=== PATIENT | male | born 1960 | race Caucasian/White ===

== ENCOUNTER 2017-01-08 19:06 | Inpatient (IN) | payer MEDICARE ==
--- NOTE | ~2017-01-08 | EKG ---
PATIENT: GARY IRENE UNIT #: [id number] Ventricular Rate: 86 BPM Atrial Rate: 86 BPM P-R Interval: 122 ms QRS Duration: 130 ms Q-T Interval: 398 ms QTC Calculation(Bezet): 476 ms P [place]: 65 degrees Calculated R [place]: 73 degrees Calculated T Dublin: 34 degrees Diagnosis Line: Normal sinus rhythm Diagnosis Line: Right bundle branch block Diagnosis Line: Abnormal ECG Diagnosis Line: When compared with ECG of 09-JAN-2017 07:33, Diagnosis Line: (unconfirmed) Diagnosis Line: Left posterior fascicular block is no longer Diagnosis Line: Present Diagnosis Line: Confirmed by RACHEL ZAMUDIO MD ([id number]) on Diagnosis Line: 01/09/2017 5:22:20 PM INTERPRETING MD: KYM
--- NOTE | ~2017-01-08 | CT4 ---
[facility] A Service of [facility] RADIOLOGY TEXT RESULTS PATIENT: GARY IRENE LOCATION: CICCU2 CICCU12-23 : 58 UNIT #: [id number] AGE: [address]: Bere Sung MD SEX: M ORDER DR: [id number] [facility] [address] [facility]. [place], [place] [address] [id number] I MR#: [id number] Acc #: [id number] NAME: GARY IRENE : 1960 SEX: M STUDY DATE/TIME: 01/08/2017 21:57 UNIT: CEDOF ROOM: [id number] STUDY DESCRIPTION: CT Abd and Pelv Wo Cont Attending Physician: Bere Sung M.D. Ordering Physician: Abimbola Patel M.D. Primary Care Physician: No Primary Care Physician MEDICAL IMAGING REPORT This report is preliminary unless electronic signature is present EXAM CT abdomen and pelvis without contrast. HISTORY Abdomen pain and lethargy. Drug overdose today. Found down. TECHNIQUE CT abdomen and pelvis was performed without contrast. This CT exam was performed with one or more of the following radiation dose reduction techniques: automatic exposure control, adjustment of mA and/or kV according to patient size, and iterative reconstruction. FINDINGS CT ABDOMEN: Incidental small hepatic cysts in the anterior hepatic dome and adjacent to the gallbladder. No biliary ductal dilatation or gallbladder distension. No renal calculi or hydronephrosis. Incidental small cyst upper pole of the right kidney. The spleen, pancreas, and adrenal glands are normal. No ascites. No inflammatory stranding. CT PELVIS: No free fluid. No bowel dilatation. No inflammatory stranding. The urinary bladder is normal. IMPRESSION 1. No acute findings in the abdomen or pelvis. 2. Incidental small hepatic cysts and right renal cyst. 3. No bowel obstruction or urinary obstruction. No free fluid. Dictated by... Dkaotah Henson M.D. [facility] A Service of [facility] RADIOLOGY TEXT RESULTS PATIENT: GARY IRENE LOCATION: CICCU2 CICCU12-23 : 58 UNIT #: [id number] AGE: [address]: Bere Sung MD SEX: M ORDER DR: THIS IS AN ELECTRONICALLY VERIFIED REPORT Dakotah Henson M.D. at 01/09/2017 11:37 PM CARLA/sandro TD: 01/09/2017 08:22 JOB #: [id number] MEDICAL IMAGING REPORT COPY
--- NOTE | ~2017-01-08 | CR72 ---
[facility] A Service of [facility] RADIOLOGY TEXT RESULTS PATIENT: GARY IRENE [facility]ATION: [facility] UNIT #: [id number] AGE: [address]: Bere Sung MD SEX: M ORDER DR: [id number] [facility] [address] [facility]. [place], [place] [address] [id number] I MR#: [id number] Acc #: [id number] NAME: GARY IRENE : 1960 SEX: M STUDY DATE/TIME: 01/08/2017 19:36 UNIT: CEDOF ROOM: [id number] STUDY DESCRIPTION: CR Chest Single View Portable Attending Physician: Bere Sung M.D. Ordering Physician: Abimbola Patel M.D. Primary Care Physician: Primary Care Physician No MEDICAL IMAGING REPORT This report is preliminary unless electronic signature is present EXAM Portable chest HISTORY Shortness of air today. Hypotension. Congestion. FINDINGS The cardiac size and pulmonary vascularity are normal. No infiltrates or effusions. Mild linear atelectasis in the lateral left base has developed since 01/03/2017. Interval removal of the right arm approach PICC. Minimally-displaced fractures of the posterior right sixth and seventh ribs. IMPRESSION No acute findings. No active disease. Dictated by... Dakotah Henson M.D. THIS IS AN ELECTRONICALLY VERIFIED REPORT Dakotah Henson M.D. at 01/09/2017 11:35 PM FANNYL/medardo TD: 01/09/2017 07:10 JOB #: [id number] MEDICAL IMAGING REPORT COPY
--- NOTE | ~2017-01-08 | EKG ---
PATIENT: GARY IRENE UNIT #: [id number] Ventricular Rate: 90 BPM Atrial Rate: 90 BPM P-R Interval: 114 ms QRS Duration: 136 ms Q-T Interval: 438 ms QTC Calculation(Bezet): 535 ms P [place]: 59 degrees Calculated R [place]: 117 degrees Calculated T [place]: 36 degrees Diagnosis Line: Normal sinus rhythm Diagnosis Line: Right bundle branch block Diagnosis Line: Abnormal ECG Diagnosis Line: No previous ECGs available Diagnosis Line: Confirmed by RACHEL ZAMUDIO MD ([id number]) on Diagnosis Line: 01/10/2017 10:55:12 PM INTERPRETING MD: KYM
--- NOTE | ~2017-01-08 | CR63 ---
[facility] A Service of [facility] & [facility] RADIOLOGY TEXT RESULTS PATIENT: GARY IRENE [facility]: [facility] 575-01 : 58 UNIT #: [id number] AGE: [address]: Raj Ibarra MD SEX: M ORDER DR: [id number] [facility] [address] [facility]. [place], [place] [address] [id number] I MR#: [id number] Acc #: [id number] NAME: GARY IRENE : 1960 SEX: M STUDY DATE/TIME: 01/12/2017 14:41 UNIT: [facility] ROOM: [facility] STUDY DESCRIPTION: CR Chest 2 View Attending Physician: Raj Ibarra M.D. Ordering Physician: Bear Rocha M.D. Primary Care Physician: No Primary Care Physician MEDICAL IMAGING REPORT This report is preliminary unless electronic signature is present EXAM PA and lateral chest 01/12/2017 HISTORY Chronic shortness of air. Performed to correlate with VQ scan. COMPARISON STUDIES 01/08/2017 PA and lateral views of the chest were obtained. FINDINGS The heart size and vascularity are normal. The lungs are hyperinflated. The bones are unremarkable. IMPRESSION Hyperinflated lungs. No active disease. Dictated by... Josh Stern M.D. THIS IS AN ELECTRONICALLY VERIFIED REPORT Josh Stern M.D. at 01/13/2017 7:26 AM Jose TD: 01/12/2017 17:38 JOB #: [id number] MEDICAL IMAGING REPORT COPY
--- NOTE | ~2017-01-08 | CO ---
Unit #: [id number] #: [id number] Patient: GARY SULTANA [id number] [address] [address] [id number] I MR#: [id number] NAME: GARY SULTANA ROOM: CIC2 Age: 56 Sex: M Admission Date: 01/08/2017 : 1960 Attending Physician: Raj Ibarra M.D. Consultation Date: 01/09/2017 CONSULTATION REPORT REASON FOR CONSULTATION A 56-year-old heroin addict, found down, and noted to have elevated serum troponin. HISTORY OF PRESENT ILLNESS Mr. Gary Sultana is a 56-year-old white male, who has no prior history of coronary or significant cardiac disease. He has taken prior to admission amlodipine for hypertension. The patient is currently in the ICU, alert, in no acute distress while watching television. He states he has absolutely no recall of the events leading up to this current admission. He does admit to snorting heroin in the hours prior to this apparent presentation. Review of records indicates that the patient was recently admitted to [facility] on 01/01/2017 through the 01/04/2017 with complaints of shortness of breath. He has a history of both heroin and cocaine abuse. He was treated for hypoxemic/hypercapnic respiratory failure, was on the ventilator, and treated for pneumonia at that time. Apparently, cocaine use has been ineffective. He was subsequently sent home on Augmentin and I continued on amlodipine for hypertension. Apparently, the patient's brother found him down in his yard and he was lethargic and confused. He took him by car to the emergency department and he reportedly passed out en route. He was felt to have likely had a drug overdose. In the ER, he was noted to have a number of abnormal labs with elevated liver function tests, lipase and amylase, any urine toxicity was positive for opioids (the patient now freely admits he was snorting heroin). He also had a new acute renal failure. He was incidentally noted to have an elevated troponin of 0.5, which subsequently increased to 1.0 and we will consult with respect to the elevated troponin. Currently, I asked the patient if he has ever had any documented heart problem and he denies this. In retrospect, he denies having had any recent chest, neck, arm, jaw, or interscapular discomfort suggestive of angina pectoris. He has had pain in his chest only when he coughs. He states that his cough produces some dark-colored sputum. No history of hemoptysis. Somehow a communication with nursing staff, there was no mention that his total CK was greater than 5000 and he was subsequently started by me on Unit #: [id number] #: [id number] Patient: GARY SULTANA medication appropriate for acute coronary syndrome including a heparin drip, and loading with Brilinta and starting aspirin. PAST MEDICAL HISTORY Other medical problems: 1. Chronic obstructive pulmonary disease. 2. Hypertensive cardiovascular disease. 3. Chronic anemia. 4. Multisubstance abuse. PAST SURGICAL HISTORY Status post appendectomy, status post surgery for salivary gland stones. SOCIAL HISTORY The patient's apparently 2 years ago and he is a . He currently lives with his mother. He admits to smoking about 1 to 1-1/2 pack of cigarettes per day. He uses cocaine and also safely sniffs heroin. He denies any recent alcohol or other substance abuse. FAMILY HISTORY Negative for premature coronary artery disease. Positive for lung cancer. PRESCRIBED MEDICINES Prior to current admission include the following: Amlodipine 10 mg p.o. once per day, albuterol inhaler 2 puffs q.4 hours p.r.n., Augmentin 875 mg b.i.d., Symbicort 160/4.5 mcg 1 puff b.i.d., and nicotine patches 21 mg at bedtime. REVIEW OF SYSTEMS The patient denies any TIA or stroke symptoms. He has not had any history of seizure. He denies any head trauma. He has not had any history of pulmonary embolus or deep venous thrombosis. He denies any history of hepatitis or yellow jaundice. He denies any fever or chills. He denies any dysuria. He has not had any orthopnea, PND, significant lower extremity edema suggestive of congestive heart failure. He states no one has ever told him he had a cardiomyopathy or weakened heart pump. He is unaware of any rapid palpitations, atrial fibrillation, dizziness. He does hear himself wheezing at times. A 12-point review of systems is otherwise negative. PHYSICAL EXAMINATION GENERAL: The patient is a thin, 56-year-old, white male, who is sitting up in bed, watching television, in no acute distress. VITAL SIGNS: Blood pressure 158/72. Monitor showed normal sinus rhythm at 80 per minutes, respiratory rate is 20 per minute and unlabored. He is able to speak in complete sentences without use of accessory muscles of respiration, oxygen saturations 97%. HEENT: Skin is warm and dry. He is nonicteric. Pupils are equal, round, reactive to light. Oral mucosa is moist. NECK: Supple without palpable thyroid or lymphadenopathy. No head trauma. LUNGS: There is scattered rhonchi bilaterally without active wheezes or rales. CARDIOVASCULAR: A soft S4 is noted at the apex. S1 is normal. The pulmonic component of the second heart sound is not increased. There is no right ventricular lift heave. There is a 2/6 systolic murmur at the left lower sternal border without pathologic radiation. There is no diastolic murmur or S3. There is no pericardial friction rub. Carotid Unit #: [id number] #: [id number] Patient: GARY SULTANA upstrokes are brisk bilaterally without bruits. ABDOMEN: Nondistended with normal bowel sounds. There is no pulsatile mass. There is no hepatosplenomegaly. EXTREMITIES: Show no edema or cyanosis. There is tenderness to palpation of the calf muscles and extending up into the lateral aspect of the right thigh. There is less tenderness over the left lower extremity. NEUROLOGIC: He is alert and oriented x3. He states that his right foot is very numb over the dorsum on palpation, but less so of the plantar aspect of the right foot. There is much less numbness over the left foot. There is a numbness over the lateral aspect of the right thigh. DIAGNOSTIC STUDIES CARDIOVASCULAR STUDIES: EKG on 01/08/2017: Atrial fibrillation with ventricular response 127 to 130 per minute. Right bundle-branch block (old). Nonspecific ST changes. No acute injury pattern or ischemia. Compared to EKG dated 09/2017 at 6:02 a.m., atrial fibrillation is new. 01/09/2017 at 4:43 a.m., normal sinus rhythm. Incomplete right bundle-branch block. Nonspecific ST changes. No acute injury pattern or ischemia. EKG 01/09/2017 at 11:17 a.m., normal sinus rhythm. First-degree AV block. No ischemia or injury pattern. LABORATORY RESULTS: Total CK on admission has increased from 4618 to 5258, and finally 5446. Troponin increased from 0.51 to 1.02. MB percentage is 1.7%. ASSESSMENT 1. Acute rhabdomyolysis. Clinical findings with markedly elevated total CK relative to very small elevation of troponin consistent more with just rhabdomyolysis. There was no clinical history, physical, or other finding to be consistent with this as an acute coronary syndrome. The troponin is insignificantly elevated relative to the market elevation of total CK from skeletal muscle injury. 2. Transient atrial fibrillation with rapid ventricular response. The patient has subsequently spontaneously converted back to normal sinus rhythm. 3. Accelerated hypertension. Blood pressures have been better controlled with IV nitroglycerin drip. 4. Acute renal failure. 5. Acute hepatocellular injury with elevated liver function tests. 6. Multisubstance abuse, most currently with heroin resulting in overdose and obtundation/metabolic encephalopathy on this current admission. RECOMMENDATIONS The patient does not have acute coronary syndrome. Very small elevation of the troponin relative to the marked total CK elevation all consistent with acute rhabdomyolysis. The patient was found down, he complains of soreness, muscle aches in the right leg greater than the left and I suspect that this may have been the position as he was in when he developed a rhabdo. Agree with current treatment as ongoing for that issue. We will however discontinue the Brilinta that was administered before that and try to wean off the IV nitroglycerin drip utilized as much for hypertension control as it was for potential coronary ischemia. We will add treatment with metoprolol tartrate starting in smaller, but more frequent doses, so as to not overshoot and caused hypotension that could worsen renal failure. We will also reinstitute amlodipine in divided Unit #: [id number] #: [id number] Patient: GARY SULTANA doses as well. We will continue IV heparin drip for now until can better assess any recurrence of the patient's atrial fibrillation. Current CHADS2 vascular score equals 1 in which an aspirin a day would be adequate therapy. However until his acute illness has been better treated, we will still cover with anticoagulation with heparin for now. An echocardiogram will be done in the morning to assess any structural heart disease/cardiomyopathy. The previously cardiac catheterization is not needed and likely will not be needed this entire admission. We will proceed with treatment of his other multiple comorbidities with his most important underlying problems being his heroin and other substance abuse. We may see if the patient would be interested in entering [facility] or other drug rehabilitation program. Dictated by... Michael Sahu M.D. CP/radhika TD: 01/10/2017 05:17 JOB #: [id number] CONSULTATION REPORT X Michael Sahu MD X CONSULTATION REPORT
--- NOTE | ~2017-01-08 | EKG ---
PATIENT: GARY IRENE UNIT #: [id number] Ventricular Rate: 93 BPM Atrial Rate: 93 BPM P-R Interval: 120 ms QRS Duration: 130 ms Q-T Interval: 388 ms QTC Calculation(Bezet): 482 ms P Bennett: 74 degrees Calculated R Bennett: 118 degrees Calculated T Bennett: 15 degrees Diagnosis Line: Normal sinus rhythm Diagnosis Line: Right bundle branch block Diagnosis Line: Left posterior fascicular block Diagnosis Line: Bifascicular block Diagnosis Line: Abnormal ECG Diagnosis Line: When compared with ECG of 09-JAN-2017 04:43, Diagnosis Line: (unconfirmed) Diagnosis Line: No significant change was found Diagnosis Line: Confirmed by RACHEL ZAMUDIO MD ([id number]) on Diagnosis Line: 01/09/2017 5:19:08 PM INTERPRETING MD: KYM
--- NOTE | ~2017-01-08 | CO ---
Unit #: [id number] #: [id number] Patient: GARY IRENE [id number] [address] [address] [id number] I MR#: [id number] NAME: [facility]ARY IR[facility] Age[facility] 56 Sex: M Admission Date: 01/08/2017 : 1960 Attending Physician: Bere Sung M.D. Primary Care Physician: No Primary Care Physician CONSULTATION REPORT REASON FOR CONSULTATION Critical care management and sepsis. HISTORY OF PRESENT ILLNESS This patient basically is known to me from previous admission a few days ago. He was admitted with acute respiratory failure. We was on ventilator with COPD exacerbation. He does have a history of drug abuse. He presented with complaint of drug overdose. He was found unresponsive by the family members and was found to be hypotensive and admitted in Intensive Care Unit. I am seeing the patient at bedside. Currently, he has been complaining of bilateral lower extremity pain. He is awake and alert. REVIEW OF SYSTEMS Positive for pallor. No edema, no cyanosis, no jaundice. The rest as per History of Present Illness. The rest of the twelve point review of systems has been reviewed and is negative other than history of present illness. PAST MEDICAL HISTORY 1. COPD exacerbation. 2. Hypertension. 3. Restless leg syndrome. 4. Polysubstance abuse. SURGICAL HISTORY 1. Appendectomy. 2. (1) . SOCIAL HISTORY He smokes one pack per day. Positive drug abuse. FAMILY HISTORY Positive for lung cancer. ALLERGIES No known drug allergies. HOME MEDICATIONS Albuterol. PHYSICAL EXAMINATION VITAL SIGNS: Temperature is currently 98, pulse is 99, respirations 23, Unit #: [id number] #: [id number] Patient: GARY IRENE blood pressure is 161/81. NEUROLOGICAL: Awake, alert, oriented. No neuro deficit. HEENT: PERRLA. NECK: Supple. No JVD. CHEST: Bilateral air entry, bilateral mild rhonchi. GI: Nontender, soft. Bowel sounds positive. EXTREMITIES: No edema. SKIN: No rashes, no ulcers. LYMPHATIC: No lymphadenopathy. DIAGNOSTIC STUDIES LABORATORY: Creatinine is 2.2, BUN 47. His potassium was 5.8. His chloride 109, bicarb is 16. His AST is 1989, ALT 1586. Troponin 0.58. Lactic acid is 5.3. Troponin 0.13. White count is 37, hematocrit 32, platelet count for the patient 310 and his lipase was 41. ASSESSMENT AND PLAN 1. Drug overdose. 2. Sepsis. 3. Hypertension. 4. Leukocytosis. 5. Acute renal failure. 6. Abnormal liver function tests. 7. Heroin overdose. 8. Hypoglycemia. 9. Chronic obstructive pulmonary disease. 10. Recent history of respiratory failure. 11. Critically ill patient. Plan is to admit the patient and continue vancomycin and Zosyn. Continue IV fluids, GI and DVT prophylaxis. Continue to monitor in Intensive Care Unit. Cardiology consultation, 2D echo. The patient will be closely monitored. Please see orders for detailed plan. Thank you very much for this consultation. We will continue to monitor patient very closely. Critical care time is 45 minutes in direct critical care of this patient. Dictated by... Saturnino Mckinney/felipe TD: 01/09/2017 15:10 JOB #: [id number] Unit #: [id number] #: [id number] Patient: GARY IRENE CONSULTATION REPORT X Shant Hay MD CONSULTATION REPORT
--- NOTE | ~2017-01-08 | NM69 ---
[facility] A Service of [facility] RADIOLOGY TEXT RESULTS PATIENT: GARY IRENE LOCATION: [facility] : 58 UNIT #: [id number] AGE: [address]: Raj Ibarra MD SEX: M ORDER DR: [id number] [facility] [address] [facility]. [place], [place] [address] [id number] I MR#: [id number] Acc #: [id number] NAME: GARY IRENE : 1960 SEX: M STUDY DATE/TIME: 01/12/2017 16:04 UNIT: [facility] ROOM: [facility] STUDY DESCRIPTION: NM Pulm Vent and Perf Attending Physician: Raj Ibarra M.D. Ordering Physician: Bear Rocha M.D. Primary Care Physician: No Primary Care Physician MEDICAL IMAGING REPORT This report is preliminary unless electronic signature is present EXAM Ventilation and perfusion study of the lungs. DATE OF EXAM 01/12/2017 INDICATION Pulmonary hypertension. Shortness of air and swelling in both legs with long-term smoking history and emphysema. Shortness of air for a long time. TECHNIQUE The ventilation study is done with 34 mCi technetium-99m DTPA in aerosol form and the perfusion study is done with 5.7 mCi technetium-99m MAA. COMPARISON There is a chest x-ray from today for comparison. FINDINGS The ventilation and perfusion images are very heterogeneous. There are no mismatched perfusion/ventilation defects and the ventilation abnormalities are much worse than the perfusion abnormalities. IMPRESSION The findings suggest diffuse emphysematous change with spotty distribution of the radiopharmaceutical on the ventilation and perfusion studies. There are no mismatched perfusion/ventilation abnormalities, and I believe this indicates a low probability for pulmonary embolus. Dictated by... Josh Stern M.D. [facility] A Service [facility] RADIOLOGY TEXT RESULTS PATIENT: GARY IRENE LOCATION: [facility] : 58 UNIT #: [id number] AGE: [address]: Raj Ibarra MD SEX: M ORDER DR: THIS IS AN ELECTRONICALLY VERIFIED REPORT Josh Stern M.D. at 01/13/2017 7:26 AM ROM/janneth TD: 01/12/2017 17:20 JOB #: [id number] MEDICAL IMAGING REPORT COPY
--- NOTE | ~2017-01-08 | EKG ---
PATIENT: GARY IRENE UNIT #: [id number] Ventricular Rate: 127 BPM Atrial Rate: 150 BPM QRS Duration: 174 ms Q-T Interval: 396 ms QTC Calculation(Bezet): 575 ms Calculated R [place]: 63 degrees Calculated T [place]: 12 degrees Diagnosis Line: Atrial fibrillation with rapid ventricular Diagnosis Line: response Diagnosis Line: Right bundle branch block Diagnosis Line: Abnormal ECG Diagnosis Line: When compared with ECG of 01-JAN-2017 06:02, Diagnosis Line: Atrial fibrillation has replaced Sinus rhythm Diagnosis Line: Questionable change in QRS duration Diagnosis Line: Confirmed by RACHEL ZAMUDIO MD ([id number]) on Diagnosis Line: 01/09/2017 5:14:29 PM INTERPRETING MD: KYM
--- NOTE | ~2017-01-08 | EKG ---
PATIENT: GARY IRENE UNIT #: [id number] Ventricular Rate: 81 BPM Atrial Rate: 81 BPM P-R Interval: 110 ms QRS Duration: 132 ms Q-T Interval: 434 ms QTC Calculation(Bezet): 504 ms P [place]: 64 degrees Calculated R [place]: 136 degrees Calculated T [place]: 42 degrees Diagnosis Line: Sinus rhythm with short ME Diagnosis Line: Right bundle branch block Diagnosis Line: Abnormal ECG Diagnosis Line: When compared with ECG of 10-JAN-2017 06:17, Diagnosis Line: No significant change was found Diagnosis Line: Confirmed by JUDE GALE MD ([id number]) on 01/11/2017 Diagnosis Line: 7:17:50 AM INTERPRETING MD: BALJINDER FONSECA
--- NOTE | ~2017-01-08 | HP ---
Unit #: [id number] #: [id number] Patient: GARY IRENE [id number] [facility] [address]. [place], [place] [address] [id number] I MR#: [id number] NAME: GARY IRENE [facility] Age: 56 Sex: M Admission Date: 01/08/2017 : 1960 Attending Physician: Bere Sung M.D. Primary Care Physician: No Primary Care Physician HISTORY AND PHYSICAL CHIEF COMPLAINT Possible drug overdose, patient passed out. DISCUSSION This is a 56-year-old gentleman who has a past medical history of COPD, hypertension, chronic anemia, history of cocaine abuse, history of heroin use. He had a recent admission here at [facility] from January 01 through January 04. He was admitted with shortness of breath and patient was intubated on vent secondary to heroin use. He was in hypoxic/hypercapnic respiratory failure on the vent and also patient has been treated for pneumonia, cocaine use and eventually patient was stabilized and sent home on Augmentin and Norvasc and nicotine patch. As per mother who is available at bedside, the brother found him in his yard, confused and he took him to car. He said in the car he passed out and he was brought to the emergency room for possible overdose. In the ER, he had abnormal labs. AST 378, ALT 476, alkaline phosphatase 152, lipase 85, amylase 289, lactic acid at 0.1. Urine toxicology was positive for opiate. BUN 35, creatinine 2.3 and glucose also was 22. The patient got D50. At this time, he just returned from CT scan. He is alert, awake, responding to questions but seems confused, complaining of numbness in the legs and also telling me that he has snorted heroin today also but denies chest pain, nausea, vomiting, or other complaints. He seems pretty confused. PAST MEDICAL HISTORY 1. History of COPD. 2. Hypertension. 3. Chronic anemia. 4. Appendectomy. 5. Salivary gland stone surgery. 6. Recently, patient admitted with hypoxic/hypercapnic respiratory failure with heroin overdose. 7. Cocaine abuse. 8. Recent history of toxic metabolic encephalopathy secondary to hypercapnia. SOCIAL HISTORY Patient lives with mother. The two years ago. He smokes one and a half packs of cigarettes daily. He used cocaine and also sniffs cocaine. Denies alcohol. FAMILY HISTORY Positive for lung cancer. Unit #: [id number] #: [id number] Patient: GARY IRENE ALLERGIES No known drug allergies. MEDICATIONS Medications from home - mother said he is using only albuterol and Advair. Did not fill the medications from discharge from the hospital. REVIEW OF SYSTEMS Unable to obtain from the patient clearly because he is confused, disoriented. PHYSICAL EXAMINATION GENERAL: Middle aged man lying in the bed comfortably, currently not in any distress. CURRENT VITAL SIGNS: Temp is 97.9, heart rate 132, respiratory rate is 18, blood pressure 80/42. Oxygen 90% on 2 L. HEENT: Pupils equal, reactive to light and accommodation. Head is normocephalic, atraumatic. NECK: Supple. No JVD. HEART: S1, S2. Regular rate and rhythm. Tachycardia. LUNGS: Poor air entry but no rhonchi, no wheezing. ABDOMEN: Soft, nontender, nondistended. Bowel sounds positive. EXTREMITIES: Inspection normal. No cyanosis, no clubbing, no edema. NEURO: No focal neurologic deficit. DIAGNOSTIC STUDIES LABORATORY: Lipase 85, amylase 289, lactic acid 8.1. Urine toxicology positive for opiates. Sodium 144, potassium 4.7, chloride 104, glucose 32, BUN 34, creatinine 2.3, AST 378, ALT 457, alkaline phos. 157. Tylenol less than 10. CBC - white count 47,000, hemoglobin 9, hematocrit 34, platelet is 443. IMAGING: Chest x-ray shows no infiltrate. CT head is negative. CT abdomen is pending at time of dictation. ASSESSMENT AND PLAN 1. Sepsis with hypotension: Empirically start patient on Zosyn and vancomycin, IV fluids. Admit to ICU. 2. Leukocytosis. 3. Acute renal failure: BUN 34, creatinine 2.3 which was 16 and 0.6 on the discharge. Will start patient on IV fluids and monitor. 4. Questionable acute pancreatitis: We are awaiting CT scan. 5. Abnormal liver function tests: Could be secondary to hypotension. Will monitor repeat CMP in the morning. 6. Heroin overdose. 7. Hypoglycemia: He was given D50, one ampule in the ER. Repeat Accu-Chek. 8. History of recent hypoxic/hypercapnic respiratory failure secondary to overdose. Unit #: [id number] #: [id number] Patient: GARY IRENE 9. Chronic obstructive pulmonary disease. 10. Hypertension with hypotension. 11. GI and DVT prophylaxis: Place patient on Lovenox and Protonix. Dictated by Saturnino Agee TD: 01/09/2017 12:06 JOB #: [id number] HISTORY AND PHYSICAL X X HISTORY AND PHYSICAL
--- NOTE | ~2017-01-08 | CT71 ---
[facility] A Service of [facility] RADIOLOGY TEXT RESULTS PATIENT: GARY IRENE LOCATION: CICCU2 CICCU12-23 : 58 UNIT #: [id number] AGE: [address]: Bere Sung MD SEX: M ORDER DR: [id number] [facility] [address] [place], [place] [address] [id number] MR#: [id number] Acc #: [id number] NAME: GARY IRENE : 1960 SEX: M STUDY DATE/TIME: 01/08/2017 21:54 UNIT: CEDOF ROOM: 67423 STUDY DESCRIPTION: CT Head Wo Contrast Attending Physician: Bere Sung M.D. Ordering Physician: Abimbola Patel M.D. Primary Care Physician: Primary Care Physician No MEDICAL IMAGING REPORT This report is preliminary unless electronic signature is present EXAM Head CT 01/08/2017 2154 hours INDICATION Patient found passed out in patient's driveway today. Lethargy. Possible overdose today. TECHNIQUE This CT examination was performed with one or more of the following radiation dose reduction techniques: automatic exposure control, adjustment of mA and/or kV according to patient size, and iterative reconstruction. FINDINGS Axial images were obtained from the base to the vertex without contrast. Comparison is made with 01/01/2017. Ventricular size and configuration remain normal. No acute infarct or hemorrhage is seen. There are no masses. No skull fracture. IMPRESSION Negative noncontrast head CT. Dictated by... Coleman Crawford Jr., M.D. THIS IS AN ELECTRONICALLY VERIFIED REPORT Coleman Crawford Jr., M.D. at 01/09/2017 8:35 PM ROSSY/medardo TD: 01/09/2017 08:12 JOB #: [id number] [facility] A Service of [facility] RADIOLOGY TEXT RESULTS PATIENT: GARY IRENE LOCATION: CICCU2 CICCU12-23 : 58 UNIT #: [id number] AGE: [address]: Bere Sung MD SEX: M ORDER DR: MEDICAL IMAGING REPORT COPY
--- NOTE | ~2017-01-08 | CO ---
Unit #: [id number] #: [id number] Patient: GARY SULTANA [id number] [facility]. [address] [address] [id number] I MR#: [id number] NAME: GARY SULTANA ROOM: CIC2 Age: 56 Sex: M Admission Date: 01/08/2017 : 1960 Attending Physician: Raj Ibarra M.D. Consultation Date: 01/09/2017 CONSULTATION REPORT REASON FOR CONSULTATION Renal failure, acidosis, hyperkalemia. Thank you very much for asking us to see this patient in consultation. HISTORY OF PRESENT ILLNESS Mr. Gary Sultana is a 56-year-old male, who was here in the hospital from 01/01/2017 to 01/04/2017, where he had heroin overdose and pneumonia. He was subsequently discharged home on 01/04/2017. He had creatinine of 0.6. He came in late last night. Early this morning, apparently mother noted he was confused and then eventually found unresponsive, presented here and noted to have increasing BUN and creatinine with a high CPK of 4618. He initially had a BUN of 34, creatinine of 2.3, and now it is up to 50 and 2.3, with potassium that was 5.8 this morning. Because of this, I was asked to see the patient. The patient states he really does not remember much. He did say he did heroin approximately 2 days ago. He has a cough and some pain with cough. He denies any significant shortness of breath right now. No severe abdominal pain, nausea, or vomiting. No urinary symptoms. No increased swelling. PAST MEDICAL HISTORY History of COPD, history of hypertension, history of anemia, history of heroin abuse, history of cocaine abuse. SOCIAL HISTORY Again, multiple polysubstance abuse as mentioned above. Positive smoker. Positive EtOH. He is a , lives with his mom. ALLERGIES No known drug allergies. REVIEW OF SYSTEMS He denies any visual problems, fevers, chills, hemoptysis. He does have some intermittent cough. Only chest pain is with cough. Does not have any shortness of breath currently. No severe abdominal pain currently. No urinary symptoms. No lower extremity swelling. He states no skin rashes. No recent seizures or strokes. MEDICATIONS Currently include aspirin, Brilinta, bicarbonate ip, Protonix, Zosyn, vanc x1. PHYSICAL EXAMINATION GENERAL: He is alert. Unit #: [id number] #: [id number] Patient: GARY SULTANA VITAL SIGNS: T-max is 98.2, pulse 86 to 132, blood pressure 74 to 154 over 29 to 95. HEENT: Normocephalic and atraumatic. His pupils are equal, round, and reactive to light. Extraocular muscles are intact. Hearing appears to be normal. His mouth is clear. No erythema. No exudate. NECK: Supple. No adenopathy. CARDIAC: Tachycardic without a rub. No S3 or S4. LUNGS: Sound fairly clear bilaterally. No wheezes, rhonchi, or rales. ABDOMEN: Bowel sounds positive. Nontender. Soft. No masses felt. No hepato-organomegaly noted. EXTREMITIES: He has no lower extremity swelling. His pulses are intact in lower extremities. JOINTS: No joint pain or joint swelling. SKIN: No rashes. : Deferred. DIAGNOSTIC STUDIES LABORATORY RESULTS: Showed last check showed a sodium of 138, potassium of 5.8, chloride is 109, bicarb 16, BUN of 47, creatinine 2.2, with a glucose of 91, calcium 7.4, albumin is 3.3. AST is up to 1989. His ALT is 1586. Amylase is 114, lipase is 41, CPK is up to 5446. Troponin is 0.51 initially, 1.02 now. Hemoglobin is 8.3, white count 30,300, platelets 282,000. INR is 1.4 on 01/04/2017. His creatinine was 0.6. IMAGING STUDIES: Chest x-ray was negative. CT of head was negative and CT of his abdomen and pelvis showed no renal pathology except for one simple cyst as well as a cyst in his kidney, otherwise negative. ASSESSMENT AND PLAN 1. Acute kidney injury. The patient with increased BUN and creatinine secondary to rhabdomyolysis as well as hypotension with acute tubular necrosis contributing to his renal failure. Apparently, he just urinated 800 mL an hour, so he is obviously making urine. He is on bicarb drip. I am going to increase his amount of bicarb and the drip to D5W with three amps of bicarb at 200 mL an hour. We will check UA, culture and sensitivity, random urine sodium and no need to image the kidneys at this point in time, since the CT was negative in the last 24 hours. We will again check CPK in the morning. There was some question about doing a heart catheterization due to increased troponin and less it is emergent from the renal standpoint, I would like to hold off on that if possible. 2. Hyperkalemia, increased potassium secondary to renal failure as well as acidosis. We will repeat potassium and it is pending. If it is still markedly elevated, we will treat with bicarb, calcium, IV Lasix x1 and recheck later this evening. 3. Acidosis. I do not have current ABG on him, but I assume he has a metabolic acidosis most likely related to his acute renal failure. Again, we will continue bicarb drip. 4. Heroin abuse. 5. History of chronic obstructive pulmonary disease. 6. Increased mild troponin as mentioned above. Dictated by.Deann Bragg M.D. LAKESHA/radhika TD: 01/09/2017 15:31 Unit #: [id number] #: [id number] Patient: GARY SULTANA JOB #: [id number] CONSULTATION REPORT X Zack Bragg MD X CONSULTATION REPORT
--- NOTE | ~2017-01-08 | DS ---
Unit #: [id number] #: [id number] Patient: GARY IRENE [id number] [address] [place], [place] [address] [id number] I MR#: [id number] NAME: GARY IRENE ROOM: 575 Age: 56 Sex: M Admission Date: 01/08/2017 : 1960 Discharge Date: 01/13/2017 Attending Physician: Raj Ibarra M.D. Primary Care Physician: Laura Primary Care Physician DISCHARGE SUMMARY CONSULTANTS 1. Dr. Acevedo. 2. Dr. Edgar Palafox. 3. Dr. Bear Rocha. ADMITTING DIAGNOSES 1. Drug overdosage. 2. Acute kidney injury. 3. Rhabdomyolysis. 4. Elevated liver function tests. 5. Transaminitis. 6. Anemia. 7. Hypertension. 8. History of cocaine and heroin abuse. 9. Possible aspiration pneumonia. HISTORY OF PRESENTING ILLNESS The patient is a 56-year-old man with a past medical history of COPD, hypertension, drug abuse including cocaine and heroin, was admitted on the as he passed out. HOSPITAL COURSE He was initially in the ICU and later moved out of the ICU. Cardiac enzymes came up slightly elevated. Cardiology was consulted. He was noted to have rhabdomyolysis, acute kidney injury and elevation of the transaminase, all though to be secondary to his hypotension. He was started on IV fluids and slowly he started to improve. He was counseled to undergo a stress test and possible cardiac cath. He refused to undergo the procedure. We explained to him in detail that refusing cardiac cath can lead to sudden cardiac and he said he understands and agrees and he still does not want to undergo the procedure. His CK levels started to improve with fluids. His renal function improved. The last creatinine is 1.3. There was also concern of PE with the right sided heart being enlarged with enlarged right atrium and dilated right ventricle. He got a V/Q scan done. V/Q scan was negative for any PE. He is doing clinically better. He will be discharged home today. He is counseled multiple times to go to detox, to stay away from drugs. I requested him to follow with cardiology to undergo outpatient stress test. His consultants include Dr. Acevedo, Dr. Palafox and Dr. Bear Rocha. On the day of the discharge, his physical examination: VITAL SIGNS - temperature 98.1, pulse of 78, respiratory rate 18, blood pressure 153/77. The patient is alert and oriented x3, lying in the bed, in no acute Unit #: [id number] #: [id number] Patient: GARY IRENE. HEENT - normocephalic, atraumatic. No icterus. CHEST: Bilateral equal air entry, clear to auscultation. HEART - S11, S2. Regular rate and rhythm. ABDOMEN - soft, nontender. EXTREMITIES - no edema. DISCHARGE MEDICATIONS Include: 1. Albuterol two puffs q.4 p.r.n. for shortness of breath. 2. Symbicort 160/4.5 mcg, one puff twice a day. 3. Nicotine 21 mg topical patch daily. 4. Norvasc 10 mg daily. 5. Hydralazine 25 mg p.o. twice a day. 6. Pepcid 20 mg p.o. daily. 7. Aspirin 81 mg daily. 8. Augmentin 875 mg, one tab p.o. b.i.d. 9. Coreg 3.125 mg p.o. b.i.d. He was instructed to follow with his primary care and with cardiology in one to two weeks and also requested to undergo drug detox. Total time spent in his discharge - 30 minutes. Dictated by..Kraig Ibarra M.D. Daniel TD: 01/14/2017 12:20 JOB #: [id number] DISCHARGE SUMMARY X X DISCHARGE SUMMARY
--- NOTE | ~2017-01-08 | EKG ---
PATIENT: GARY IRENE UNIT #: [id number] Ventricular Rate: 88 BPM Atrial Rate: 88 BPM P-R Interval: 126 ms QRS Duration: 128 ms Q-T Interval: 388 ms QTC Calculation(Bezet): 469 ms P Counselor: 72 degrees Calculated R Counselor: 60 degrees Calculated T Counselor: 29 degrees Diagnosis Line: Normal sinus rhythm Diagnosis Line: Right bundle branch block Diagnosis Line: Low voltage QRS Diagnosis Line: Abnormal ECG Diagnosis Line: When compared with ECG of 08-JAN-2017 19:04, Diagnosis Line: (unconfirmed) Diagnosis Line: Sinus rhythm has replaced Atrial fibrillation Diagnosis Line: Confirmed by RACHEL ZAMUDIO MD ([id number]) on Diagnosis Line: 01/09/2017 5:17:36 PM INTERPRETING MD: KYM
--- NOTE | ~2017-01-08 | CO ---
Unit #: [id number] #: [id number] Patient: GARY IRENE [id number] [facility] [address]. [place], [place] [address] [id number] I MR#: [id number] NAME: GARY IRENE ROOM: 575 Age: 56 Sex: M Admission Date: 01/08/2017 : 1960 Attending Physician: Raj Ibarra M.D. Primary Care Physician: Primary Care Physician No Consultation Date: 01/13/2017 CONSULTATION REPORT REASON FOR CONSULTATION Overdose on heroin, depression. HISTORY OF PRESENT ILLNESS Mr. Gary Irene is a 56-year-old white male, seen on 01/13/2017. The patient was seen in room 575 at [facility]. The patient was pleasant, cooperative, dressed casually in hospital attire. The patient reports that he used one line of cocaine and after that he does not remember. The patient has a history of drug overdose in the past, last admission on 12/2016. The patient was admitted on 01/08/2017 with possible drug use, the patient passed out. The patient denied use of any other drugs. He reports that he lives with his mom, has a good support system. The patient reports that he has been feeling somewhat sad, since his 2 years ago. The patient denied any current suicidal or homicidal ideation and does not want to be on any medication for depression. The patient was able to contract for safety at this time. PAST PSYCHIATRIC HISTORY Remarkable for history of heroin abuse and history of depression. PAST MEDICAL HISTORY Remarkable for history of COPD, hypertension, and chronic anemia. MEDICATIONS The patient is currently on hydralazine, Combivent, Lovenox, Norvasc, Lopressor, Zofran, and aspirin. ALLERGIES No known drug allergies. FAMILY HISTORY/SOCIAL HISTORY The patient lives with his mother. History of heroin abuse. No history of any abuse. REVIEW OF SYSTEMS Complete review of systems is unremarkable. MENTAL STATUS EXAMINATION General appearance, the patient dressed casually in hospital attire. Attention span and concentration, fair. Speech, regular rate. Oriented in time, place, and person. Mood and affect were sad and dysphoric. Thought process, coherent and goal directed. Thought content, the patient denied any thoughts of harming self or others or any auditory or visual Unit #: [id number] #: [id number] Patient: GARY IRENE hallucination. Recent and remote memory, fair. Language, able to name object and repeat phrases. Fund of knowledge, aware of current event, passive vocabulary intact. Insight and judgment, fair to slightly impaired. DIAGNOSES Psychiatric: Opioid use disorder, moderate, F11.20; mood disorder, not otherwise specified, F32.9. Secondary diagnosis: Deferred. Medical diagnosis: Please refer to H and P. Stressors: Psychosocial stressors. ASSESSMENT/PLAN 1. Supportive psychotherapy and psychoeducation provided to the patient. 2. Educated about benefits and side effects of medication and course and prognosis of illness. 3. Advised to maintain sobriety, for that the patient was advised to follow up at CD-IOP program at [facility], telephone [phone]. The patient does not want to be on any medication at this time. The patient was advised to follow up with the program and consider SSRI. Please feel free to call if any questions, telephone [phone]. Dictated by... Saturnino Neely/radhika TD: 01/14/2017 01:44 JOB #: [id number] CONSULTATION REPORT X Umer Viera MD X CONSULTATION REPORT
[~2017-01-08 19:06] MED LIST: ADVAIR 500-501 EACH IH; ALBUTEROL MININEB NEB; ALBUTEROL17 GM INH; ASPIRIN81 M1 PO; AUGMENTIN875 MG PO; DOXYCYCLINE PO; DUONEB 2.5-0.5 M3 ML NEB; FERROUS GLUCON324 MG PO; GUAIFENESIN; IBUPROFEN PO; LEVAQUIN750 MG PO; LISINOPRIL20 MG PO; MEDROL4 MG/DOSE- PO; METOPROLOL TART25 MG PO; NICOTINE TRANSD14 MG EXT; NICOTINE TRANSD21 MG EXT; NICOTINE TRANSD21 MG TOP; NORVASC10 MG PO; PREDNISONE PO; PREDNISONE50 MG PO; PROAIR HFA8.5 GM IH; PROVENTIL17 GM IH; SYMBICORT INH; THEOPHYLLIN PO; VIBRAMYCIN100 M1 PO; ZESTORETIC 20/21 TAB PO
[2017-01-08 19:40] LABS: BASOPHIL# 0.1 X10e3 (0-0.3); BASOPHIL% 0.2 % (0-2.5); EOSINOPHIL# 0.1 X10e3 (0-0.7); EOSINOPHIL% 0.2 % (0.0-7.0); HEMATOCRIT 34.8 % (38.0-50.0); HEMOGLOBIN 9.1 gm/dL (13.0-16.0); LYMPHOCYTE# 1.2 X10e3 (1.0-3.5); LYMPHOCYTE% 2.6 % (17.0-45.0); MEAN CELL VOLUME 67.1 FL (83-96); MEAN CORPUSCULAR HEMOGLOBIN 17.6 PG (28-34); MEAN CORPUSCULAR HGB CONC 26.2 g/dL (30-36); MEAN PLATELET VOLUME 7.4 FL (6.5-11.5); MONOCYTE# 2.1 X10e3 (0-1.0); MONOCYTE% 4.5 % (3.0-12.0); NEUTROPHIL% 92.5 % (40-75); PLATELET COUNT 443 X10e3 (140-420); RED BLOOD COUNT 5.18 X10e (3.90-5.60); RED CELL DISTRIBUTION WIDTH 20.4 % (11.0-15.5); WHITE BLOOD COUNT 47.5 X10e3 (4.0-10.5)
[2017-01-08 19:41] LABS: DIFF IND YES
[2017-01-08 19:59] LABS: PLATELET ESTIMATE NORMAL (NORMAL); POIKILOCYTOSIS MOD
[2017-01-08 20:06] LABS: ALBUMIN SERUM 3.9 g/dL (3.5-5.0); BILIRUBIN, DIRECT 0.1 mg/dL (0.0-0.2); BILIRUBIN,INDIRECT 0.5 mg/dL (0.0-0.9); BILIRUBIN,TOTAL 0.6 mg/dL (0.2-2.0); BUN/CREATININE RATIO 14.78; CALCIUM SERUM 8.5 mg/dL (8.4-10.2); CREATININE SERUM 2.3 mg/dL (0.6-1.4); GLOM FILT RATE Estimated 31.3 mL/min (>60); POTASSIUM 4.7 mmol/L (3.5-5.1); PROTEIN TOTAL SERUM 7.2 g/dL (6.0-8.3)
[2017-01-08 20:42] LABS: AMPHETAMINE NEG (NEG); BARBITURATES NEG (NEG); BENZODIAZEPINES NEG (NEG); COCAINE NEG (NEG); MARIJUANA NEG (NEG); OPIATES POS (NEG); TRICYCLIC ANTIDEPRESSANTS NEG (NEG); U METHADONE NEG (NEG)
[2017-01-08 21:43] LABS: AMYLASE 289 U/L (0-46); LIPASE 85 U/L (22-51)
[2017-01-08 22:27] LABS: POC - CKMB 6.6 ng/mL (0.0-7.9); POC - TROPONIN 0.13 ng/mL (<=0.05)
[2017-01-09 04:05] LABS: %MB 1.7 % (0.0-4.0); MB 78.5 ng/ml
[2017-01-09 04:25] LABS: DIFF IND NO; HEMATOCRIT 32.9 % (38.0-50.0); HEMOGLOBIN 8.8 gm/dL (13.0-16.0); LYMPHOCYTE# 0.5 X10e3 (1.0-3.5); LYMPHOCYTE% 1.3 % (17.0-45.0); MEAN CELL VOLUME 65.9 FL (83-96); MEAN CORPUSCULAR HEMOGLOBIN 17.7 PG (28-34); MEAN CORPUSCULAR HGB CONC 26.8 g/dL (30-36); MEAN PLATELET VOLUME 7.6 FL (6.5-11.5); MONOCYTE# 0.7 X10e3 (0-1.0); MONOCYTE% 1.9 % (3.0-12.0); NEUTROPHIL# 36.3 X10e3 (1.5-7.1); NEUTROPHIL% 96.8 % (40-75); PLATELET COUNT 310 X10e3 (140-420); RED BLOOD COUNT 4.99 X10e (3.90-5.60); RED CELL DISTRIBUTION WIDTH 20.2 % (11.0-15.5); WHITE BLOOD COUNT 37.6 X10e3 (4.0-10.5)
[2017-01-09 04:57] LABS: ALBUMIN SERUM 3.3 g/dL (3.5-5.0); BILIRUBIN,TOTAL 0.9 mg/dL (0.2-2.0); BUN/CREATININE RATIO 21.36; CALCIUM SERUM 7.4 mg/dL (8.4-10.2); CREATININE SERUM 2.2 mg/dL (0.6-1.4)
[2017-01-09 04:58] LABS: POTASSIUM 5.8 mmol/L (3.5-5.1)
[2017-01-09 05:31] LABS: %MB 1.7 % (0.0-4.0); MB 89.4 ng/ml
[2017-01-09 12:11] LABS: BASOPHIL% 0.1 % (0-2.5); HEMATOCRIT 30.7 % (38.0-50.0); HEMOGLOBIN 8.3 gm/dL (13.0-16.0); LYMPHOCYTE# 0.7 X10e3 (1.0-3.5); LYMPHOCYTE% 2.2 % (17.0-45.0); MEAN CELL VOLUME 65.6 FL (83-96); MEAN CORPUSCULAR HEMOGLOBIN 17.8 PG (28-34); MEAN CORPUSCULAR HGB CONC 27.2 g/dL (30-36); MEAN PLATELET VOLUME 7.8 FL (6.5-11.5); MONOCYTE# 0.9 X10e3 (0-1.0); MONOCYTE% 2.9 % (3.0-12.0); NEUTROPHIL# 28.7 X10e3 (1.5-7.1); NEUTROPHIL% 94.8 % (40-75); PLATELET COUNT 282 X10e3 (140-420); RED BLOOD COUNT 4.68 X10e (3.90-5.60); RED CELL DISTRIBUTION WIDTH 20.3 % (11.0-15.5); WHITE BLOOD COUNT 30.3 X10e3 (4.0-10.5)
[2017-01-09 12:14] LABS: DIFF IND NO
[2017-01-09 12:16] LABS: INR 1.4; PARTIAL THROMBOPLASTIN TIME 26.8 SECONDS (23.5-31.3); PROTHROMBIN TIME (PATIENT) 14.7 SECONDS (9.6-11.5)
[2017-01-09 13:43] LABS: %MB 1.7 % (0.0-4.0); MB 90.7 ng/ml
[2017-01-09 13:52] LABS: BUN/CREATININE RATIO 21.73; CALCIUM SERUM 7.1 mg/dL (8.4-10.2); CREATININE SERUM 2.3 mg/dL (0.6-1.4); GLOM FILT RATE Estimated 31.3 mL/min (>60)
[2017-01-09 13:54] LABS: POTASSIUM 5.7 mmol/L (3.5-5.1)
[2017-01-09 16:14] LABS: URINE APPEARANCE CLEAR; URINE BILIRUBIN NEG (NEG); URINE BLOOD 3+ (NEG); URINE COLOR YELLOW; URINE GLUCOSE NEG (NEG); URINE KETONE NEG (NEG); URINE LEUKOCYTE ESTERASE NEG (NEG); URINE NITRATE NEG (NEG); URINE PH 5.5 (5-8); URINE PROTEIN NEG (NEG); URINE SPECIFIC GRAVITY 1.009 (1.003-1.035); URINE UROBILINOGEN 0.2 MG/DL (NEG)
[2017-01-09 16:16] LABS: U HYALINE CASTS AUWI 0-2 /[LPF]; URINE BACTERIA AUWI NEG (NEGATIVE); URINE SQUAMOUS EPITHELIAL CELL NONE SEEN /[HPF]
[2017-01-09 18:59] LABS: BUN/CREATININE RATIO 20.8; CALCIUM SERUM 7.1 mg/dL (8.4-10.2); CREATININE SERUM 2.5 mg/dL (0.6-1.4); GLOM FILT RATE Estimated 28.4 mL/min (>60); POTASSIUM 4.2 mmol/L (3.5-5.1)
[2017-01-09 20:09] LABS: %MB 1.5 % (0.0-4.0); MB 64.1 ng/ml
[2017-01-10 00:08] LABS: %MB 0.9 % (0.0-4.0); MB 39.4 ng/ml
[2017-01-10 05:37] LABS: ALBUMIN SERUM 2.8 g/dL (3.5-5.0); BILIRUBIN,TOTAL 0.5 mg/dL (0.2-2.0); CALCIUM SERUM 6.4 mg/dL (8.4-10.2); CREATININE SERUM 2.4 mg/dL (0.6-1.4); GLOM FILT RATE Estimated 29.8 mL/min (>60); MAGNESIUM 1.5 mg/dL (1.6-3.0); PROTEIN TOTAL SERUM 4.8 g/dL (6.0-8.3)
[2017-01-10 05:40] LABS: POTASSIUM 2.7 mmol/L (3.5-5.1)
[2017-01-10 06:25] LABS: MAGNESIUM 1.6 mg/dL (1.6-3.0); PHOSPHOROUS 3.8 mg/dL (2.5-4.6)
[2017-01-10 08:24] LABS: HEMOGLOBIN 7.6 gm/dL (13.0-16.0); RED BLOOD COUNT 4.21 X10e (3.90-5.60); RED CELL DISTRIBUTION WIDTH 19.2 % (11.0-15.5)
[2017-01-10 08:31] LABS: BASOPHIL# 0.1 X10e3 (0-0.3); BASOPHIL% 0.4 % (0-2.5); HEMATOCRIT 25.1 % (38.0-50.0); LYMPHOCYTE# 1.4 X10e3 (1.0-3.5); MEAN CORPUSCULAR HGB CONC 30.2 g/dL (30-36); MEAN PLATELET VOLUME 8.8 FL (6.5-11.5); MONOCYTE# 1.3 X10e3 (0-1.0); MONOCYTE% 5.4 % (3.0-12.0); NEUTROPHIL# 20.7 X10e3 (1.5-7.1); NEUTROPHIL% 88.2 % (40-75); PLATELET COUNT 233 X10e3 (140-420)
[2017-01-10 08:34] LABS: %MB 0.5 % (0.0-4.0); MB 19.9 ng/ml
[2017-01-10 08:35] LABS: MEAN CELL VOLUME 59.6 FL (83-96)
[2017-01-10 08:36] LABS: DIFF IND NO; WHITE BLOOD COUNT 23.4 X10e3 (4.0-10.5)
[2017-01-10 09:30] LABS: CHOLESTEROL 98 mg/dL (0-200); HDL CHOLESTEROL 43 mg/dL (29-75); LDL CHOLESTEROL 45 mg/dL (-130); LDL/HDL RATIO 1 RATIO (0-4); TRIGLYCERIDES 52 mg/dL (10-160)
[2017-01-10 17:42] LABS: BUN/CREATININE RATIO 18.26; CALCIUM SERUM 6.5 mg/dL (8.4-10.2); CREATININE SERUM 2.3 mg/dL (0.6-1.4); GLOM FILT RATE Estimated 31.3 mL/min (>60); MAGNESIUM 2.3 mg/dL (1.6-3.0)
[2017-01-10 17:44] LABS: POTASSIUM 2.8 mmol/L (3.5-5.1)
[2017-01-11 06:19] LABS: BASOPHIL% 0.2 % (0-2.5); EOSINOPHIL% 0.1 % (0.0-7.0); HEMATOCRIT 26.7 % (38.0-50.0); HEMOGLOBIN 7.8 gm/dL (13.0-16.0); LYMPHOCYTE# 1.6 X10e3 (1.0-3.5); LYMPHOCYTE% 9.3 % (17.0-45.0); MEAN CELL VOLUME 61.8 FL (83-96); MEAN CORPUSCULAR HEMOGLOBIN 18.1 PG (28-34); MEAN CORPUSCULAR HGB CONC 29.2 g/dL (30-36); MEAN PLATELET VOLUME 8.7 FL (6.5-11.5); MONOCYTE# 1.3 X10e3 (0-1.0); MONOCYTE% 7.7 % (3.0-12.0); NEUTROPHIL# 14.2 X10e3 (1.5-7.1); NEUTROPHIL% 82.7 % (40-75); PLATELET COUNT 186 X10e3 (140-420); RED BLOOD COUNT 4.31 X10e (3.90-5.60); RED CELL DISTRIBUTION WIDTH 19.7 % (11.0-15.5); WHITE BLOOD COUNT 17.2 X10e3 (4.0-10.5)
[2017-01-11 06:25] LABS: DIFF IND NO
[2017-01-11 07:11] LABS: ALBUMIN SERUM 2.9 g/dL (3.5-5.0); BILIRUBIN,TOTAL 0.5 mg/dL (0.2-2.0); BUN/CREATININE RATIO 16.66; CALCIUM SERUM 7.1 mg/dL (8.4-10.2); CREATININE SERUM 1.8 mg/dL (0.6-1.4); GLOM FILT RATE Estimated 41.5 mL/min (>60); POTASSIUM 3.7 mmol/L (3.5-5.1); PROTEIN TOTAL SERUM 5.4 g/dL (6.0-8.3)
[2017-01-12 05:54] LABS: HEMATOCRIT 26.2 % (38.0-50.0); HEMOGLOBIN 7.4 gm/dL (13.0-16.0); MEAN CELL VOLUME 62.2 FL (83-96); MEAN CORPUSCULAR HEMOGLOBIN 17.5 PG (28-34); MEAN CORPUSCULAR HGB CONC 28.2 g/dL (30-36); MEAN PLATELET VOLUME 8.5 FL (6.5-11.5); RED BLOOD COUNT 4.21 X10e (3.90-5.60); RED CELL DISTRIBUTION WIDTH 20.3 % (11.0-15.5)
[2017-01-12 06:36] LABS: ALBUMIN SERUM 2.7 g/dL (3.5-5.0); BILIRUBIN,TOTAL 0.8 mg/dL (0.2-2.0); BUN/CREATININE RATIO 12.66; CALCIUM SERUM 7.9 mg/dL (8.4-10.2); CREATININE SERUM 1.5 mg/dL (0.6-1.4); GLOM FILT RATE Estimated 51.3 mL/min (>60); MAGNESIUM 1.7 mg/dL (1.6-3.0); POTASSIUM 3.8 mmol/L (3.5-5.1); PROTEIN TOTAL SERUM 5.3 g/dL (6.0-8.3)
[2017-01-13 06:56] LABS: BLOOD UREA NITROGEN 14 mg/dL (9-23); BUN/CREATININE RATIO 10.76; CALCIUM SERUM 8.7 mg/dL (8.4-10.2); CARBON DIOXIDE 24 mmol/L (22-31); CHLORIDE 113 mmol/L (100-111); CPK (CREATINE PHOSPHOKINASE) 839 IU/L (36-174); CREATININE SERUM 1.3 mg/dL (0.6-1.4); GLOM FILT RATE Estimated ABOVE60 mL/min (>60); GLUCOSE FASTING 123 mg/dL (70-110); POTASSIUM 3.1 mmol/L (3.5-5.1); SODIUM 148 mmol/L (135-145)
[2017-01-13 12:41] LABS: HEMATOCRIT 32.3 % (38.0-50.0); MEAN CELL VOLUME 64.4 FL (83-96); MEAN CORPUSCULAR HGB CONC 29.4 g/dL (30-36); MEAN PLATELET VOLUME 8.6 FL (6.5-11.5); RED BLOOD COUNT 5.02 X10e (3.90-5.60); RED CELL DISTRIBUTION WIDTH 22.1 % (11.0-15.5); WHITE BLOOD COUNT 13.3 X10e3 (4.0-10.5)
[2017-01-13 12:45] LABS: HEMOGLOBIN 9.5 gm/dL (13.0-16.0)
[2017-01-13] MEDS ORDERED: ASPIRIN81 MG PO (15:20)
[2017-01-13] MEDS ORDERED: PEPCID PO (15:20)
[2017-01-13] MEDS ORDERED: COREG3.125 MG PO (15:20)
[2017-01-13] MEDS ORDERED: HYDRALAZINE HCL25 MG PO (15:20)
== END 2017-01-13 18:13 | disposition home or self-care (01) | DRG 917 ==
LOC: CED 19:06 → CEDOF 22:40 → CICCU2 01-09 09:30 → C5C 01-10 15:32
PROVIDERS: Emergency Medicine; Internal Medicine; Internal Medicine Cardiovascular Disease; Internal Medicine Nephrology
PROC: B246YZZ Ultrasonography of Right and Left Heart using Other Contrast (ICD-10-PCS; principal; 2017-01-10)
DX: T40.1X1A Poisoning by heroin, accidental (unintentional), initial encounter (principal); J69.0 Pneumonitis due to inhalation of food and vomit; N17.0 Acute kidney failure with tubular necrosis; K72.00 Acute and subacute hepatic failure without coma; G93.41 Metabolic encephalopathy; A41.9 Sepsis, unspecified organism; M62.82 Rhabdomyolysis; F11.20 Opioid dependence, uncomplicated; F14.20 Cocaine dependence, uncomplicated; I10 Essential (primary) hypertension; I25.10 Atherosclerotic heart disease of native coronary artery without angina pectoris; Z90.49 Acquired absence of other specified parts of digestive tract; F17.210 Nicotine dependence, cigarettes, uncomplicated; Z80.1 Family history of malignant neoplasm of trachea, bronchus and lung; I48.91 Unspecified atrial fibrillation; J44.9 Chronic obstructive pulmonary disease, unspecified; E87.5 Hyperkalemia; Z71.51 Drug abuse counseling and surveillance of drug abuser; I27.2 Other secondary pulmonary hypertension; F39 Unspecified mood [affective] disorder; G25.81 Restless legs syndrome
CPT/HCPCS: 36415; 70450; 71010; 71020; 74176; 78582; 80048; 80053; 80061; 80076; 80202; 80307; 81003; 82150; 82308; 82550; 82553; 82947; 83605; 83690; 83735; 83874; 84100; 84132; 84300; 84484; 85025; 85027; 85610; 85730; 86850; 86900; 86901; 86923; 87040; 93005; 93306; 94640; 94760; 94761; 96361; 96374; 96375; 97110; 97116; 97162; 99285; A9540; A9567; C9113; G0480; G8978-GP; G8979-GP; G8980-GP; J0610; J1644; J1650; J1940; J2405; J2543; J2930; J3370; J3475; J7060; P9016

== ENCOUNTER 2017-03-05 08:03 | Emergency (ER) | payer MEDICARE ==
--- NOTE | ~2017-03-05 | CR72 ---
[facility] A Service of [facility] & [facility] RADIOLOGY TEXT RESULTS PATIENT: GARY IRENE LOCATION: [facility] : 58 UNIT #: [id number] AGE: [address]: Coleman Campo MD SEX: M ORDER DR: [id number] [facility] [address]. [place], [place] [address] [id number] MR#: [id number] Acc #: [id number] NAME: GARY IRENE : 1960 SEX: M STUDY DATE/TIME: 03/05/2017 9:27 UNIT: [facility] ROOM: STUDY DESCRIPTION: CR Chest Single View Portable Attending Physician: Coleman Campo M.D. Referring Physician: No Primary Care Physician Ordering Physician: Coleman Campo M.D. Primary Care Physician: No Primary Care Physician MEDICAL IMAGING REPORT This report is preliminary unless electronic signature is present EXAM Portable chest 03/05/2017 HISTORY Cough and shortness of air for 2 days. Comparison chest 01/12/2017. FINDINGS 2 frontal views of the chest demonstrate clear lungs. No pleural effusion or pneumothorax. Emphysema. Heart size and mediastinum are normal. Pulmonary vasculature unremarkable. Healing fractures of the right sixth and seventh ribs. IMPRESSION Emphysema. No acute cardiopulmonary findings. Healing fractures of the right sixth and seventh ribs Dictated by... Rachid Dawson M.D. THIS IS AN ELECTRONICALLY VERIFIED REPORT Rachid Dawson M.D. at 03/06/2017 8:13 AM ASHLEY/dory TD: 03/06/2017 02:28 JOB #: [id number] MEDICAL IMAGING REPORT Page 1 of 1 COPY
--- NOTE | ~2017-03-05 | EKG ---
PATIENT: GARY IRENE UNIT #: [id number] Ventricular Rate: 77 BPM Atrial Rate: 77 BPM P-R Interval: 126 ms QRS Duration: 142 ms Q-T Interval: 414 ms QTC Calculation(Bezet): 468 ms P [place]: 67 degrees Calculated R [place]: 151 degrees Calculated T [place]: 38 degrees Diagnosis Line: Normal sinus rhythm Diagnosis Line: Right bundle branch block Diagnosis Line: Left posterior fascicular block Diagnosis Line: Bifascicular block Diagnosis Line: Abnormal ECG Diagnosis Line: When compared with ECG of 11-JAN-2017 05:41, Diagnosis Line: No significant change was found Diagnosis Line: Confirmed by RACHEL ZAMUDIO MD ([id number]) on Diagnosis Line: 03/09/2017 5:38:33 AM INTERPRETING MD: KYM
[2017-03-05 07:42] LABS: BASOPHIL# 0.2 X10e3 (0-0.3); BASOPHIL% 2.4 % (0-2.5); EOSINOPHIL# 0.8 X10e3 (0-0.7); EOSINOPHIL% 11.2 % (0.0-7.0); HEMATOCRIT 31.8 % (38.0-50.0); HEMOGLOBIN 9.4 gm/dL (13.0-16.0); LYMPHOCYTE# 1.7 X10e3 (1.0-3.5); LYMPHOCYTE% 22.9 % (17.0-45.0); MEAN CELL VOLUME 65.5 FL (83-96); MEAN CORPUSCULAR HEMOGLOBIN 19.4 PG (28-34); MEAN CORPUSCULAR HGB CONC 29.6 g/dL (30-36); MEAN PLATELET VOLUME 8.7 FL (6.5-11.5); MONOCYTE# 0.6 X10e3 (0-1.0); MONOCYTE% 8.3 % (3.0-12.0); NEUTROPHIL% 55.2 % (40-75); PLATELET COUNT 392 X10e3 (140-420); RED BLOOD COUNT 4.86 X10e (3.90-5.60); RED CELL DISTRIBUTION WIDTH 22.4 % (11.0-15.5); WHITE BLOOD COUNT 7.2 X10e3 (4.0-10.5)
[2017-03-05 07:45] LABS: DIFF IND YES
[2017-03-05 07:53] LABS: POC - CKMB 1.1 ng/mL (0.0-7.9); POC - TROPONIN <0.05 ng/mL (<=0.05)
[2017-03-05 08:03] LABS: PLATELET ESTIMATE NORMAL (NORMAL)
[~2017-03-05 08:03] MED LIST changes: +ASPIRIN81 MG PO; +COREG3.125 MG PO; +HYDRALAZINE HCL25 MG PO; +PEPCID PO
[2017-03-05 08:04] LABS: HYPOCHROMIA SL
[2017-03-05 08:21] LABS: BUN/CREATININE RATIO 23.75; CALCIUM SERUM 8.8 mg/dL (8.4-10.2); CREATININE SERUM 0.8 mg/dL (0.6-1.4); GLOM FILT RATE Estimated 99.2 mL/min (>60); POTASSIUM 4.2 mmol/L (3.5-5.1)
[2017-08-13] MEDS ORDERED: REQUIP0.25 MG PO (16:51)
[2017-08-13] MEDS ORDERED: PROVENTIL INH0.5 ML INH (16:51)
[2017-08-13] MEDS ORDERED: METOPROLOL SUCC25 MG PO (16:52)
[2017-08-13] MEDS ORDERED: ARNUITY ELLIP100 MCG INH (16:53)
[2017-08-13] MEDS ORDERED: FERROUS GLUCON324 MG PO (16:53)
[2017-08-13] MEDS ORDERED: COUMADIN7.5 MG PO (16:54)
== END 2017-03-05 10:00 | disposition home or self-care (01) ==
LOC: CED 08:03
PROVIDERS: Emergency Medicine
DX: J44.1 Chronic obstructive pulmonary disease with (acute) exacerbation (principal); F17.200 Nicotine dependence, unspecified, uncomplicated
CPT/HCPCS: 36415; 71010; 80048; 82550; 82553; 83880; 84484; 85025; 93005; 94640; 99284

== ENCOUNTER 2017-03-12 15:59 | Emergency (ER) | payer MEDICARE ==
--- NOTE | ~2017-03-12 | CR72 ---
[facility] A Service of [facility] & [facility] RADIOLOGY TEXT RESULTS PATIENT: GARY IRENE LOCATION: [facility] : 58 UNIT #: [id number] AGE: [address]: Refugio Quiroz MD SEX: M ORDER DR: [id number] [facility] [address] [place], [place] [address] [id number] E MR#: [id number] #: [id number] NAME: GARY IRENE : 1960 SEX: M STUDY DATE/TIME: 03/12/2017 15:26 UNIT: [facility] ROOM: STUDY DESCRIPTION: CR Chest Single View Portable Attending Physician: Refugio Quiroz M.D. Ordering Physician: Refugio Quiroz M.D. MEDICAL IMAGING REPORT This report is preliminary unless electronic signature is present EXAM Portable chest HISTORY Shortness of air, onset today. Cough, congestion x3 days. Smoker. COMPARISON STUDIES 03/05/2017. FINDINGS Portable view of the chest demonstrates pulmonary hyperinflation, hyperlucency compatible with emphysema. Heart, mediastinum unremarkable. Right-sided rib fractures are noted which appear partially healed probably subacute involving the right sixth and seventh posterolateral ribs. No pneumothorax. Dictated by... Mercy Cueto M.D. THIS IS AN ELECTRONICALLY VERIFIED REPORT Mercy Cueto M.D. at 03/12/2017 8:37 PM Dano TD: 03/12/2017 18:47 JOB #: [id number] MEDICAL IMAGING REPORT Page 1 of 1 COPY
--- NOTE | ~2017-03-12 | EKG ---
PATIENT: GARY IRENE UNIT #: [id number] Ventricular Rate: 89 BPM Atrial Rate: 89 BPM P-R Interval: 120 ms QRS Duration: 126 ms Q-T Interval: 400 ms QTC Calculation(Bezet): 486 ms P [place]: 70 degrees Calculated R [place]: 87 degrees Calculated T [place]: 51 degrees Diagnosis Line: Normal sinus rhythm Diagnosis Line: Right bundle branch block Diagnosis Line: Abnormal ECG Diagnosis Line: When compared with ECG of 05-MAR-2017 07:28, Diagnosis Line: Left posterior fascicular block is no longer Diagnosis Line: Present Diagnosis Line: Confirmed by JUDE GALE MD ([id number]) on 03/12/2017 Diagnosis Line: 6:41:59 PM INTERPRETING MD: BALJINDER FONSECA
[2017-03-12 15:32] LABS: POC - TROPONIN <0.05 ng/mL (<=0.05)
[2017-03-12 15:57] LABS: BASOPHIL# 0.2 X10e3 (0-0.3); BASOPHIL% 2.2 % (0-2.5); EOSINOPHIL# 0.8 X10e3 (0-0.7); EOSINOPHIL% 9.1 % (0.0-7.0); HEMATOCRIT 31.9 % (38.0-50.0); HEMOGLOBIN 9.4 gm/dL (13.0-16.0); LYMPHOCYTE# 2.5 X10e3 (1.0-3.5); LYMPHOCYTE% 27.2 % (17.0-45.0); MEAN CELL VOLUME 65.9 FL (83-96); MEAN CORPUSCULAR HEMOGLOBIN 19.4 PG (28-34); MEAN CORPUSCULAR HGB CONC 29.5 g/dL (30-36); MONOCYTE# 0.7 X10e3 (0-1.0); MONOCYTE% 7.3 % (3.0-12.0); NEUTROPHIL# 4.9 X10e3 (1.5-7.1); NEUTROPHIL% 54.2 % (40-75); PLATELET COUNT 450 X10e3 (140-420); RED BLOOD COUNT 4.85 X10e (3.90-5.60)
[2017-03-12 15:59] LABS: DIFF IND NO
[2017-03-12 16:06] LABS: PROTHROMBIN TIME (PATIENT) 10.5 SECONDS (9.6-11.5)
[2017-03-12 16:09] LABS: ALBUMIN SERUM 3.9 g/dL (3.5-5.0); ALKALINE PHOSPHATASE 92 U/L (32-92); ALT (SGPT) 18 U/L (10-40); AST (SGOT) 18 U/L (10-42); BILIRUBIN,TOTAL 0.4 mg/dL (0.2-2.0); BLOOD UREA NITROGEN 20 mg/dL (9-23); BUN/CREATININE RATIO 22.22; CALCIUM SERUM 8.9 mg/dL (8.4-10.2); CARBON DIOXIDE 23 mmol/L (22-31); CHLORIDE 105 mmol/L (100-111); CREATININE SERUM 0.9 mg/dL (0.6-1.4); GLOM FILT RATE Estimated 94.5 mL/min (>60); GLUCOSE FASTING 88 mg/dL (70-110); POTASSIUM 3.9 mmol/L (3.5-5.1); PROTEIN TOTAL SERUM 6.7 g/dL (6.0-8.3); SODIUM 137 mmol/L (135-145)
[2017-03-12 16:11] LABS: BILIRUBIN, DIRECT <0.1 mg/dL (0.0-0.2); BILIRUBIN,INDIRECT 0.3 mg/dL (0.0-0.9)
[2017-03-12 17:27] LABS: POC - CKMB 1.7 ng/mL (0.0-7.9); POC - TROPONIN <0.05 ng/mL (<=0.05)
[2017-08-13] MEDS ORDERED: REQUIP0.25 MG PO (16:51)
[2017-08-13] MEDS ORDERED: PROVENTIL INH0.5 ML INH (16:51)
[2017-08-13] MEDS ORDERED: METOPROLOL SUCC25 MG PO (16:52)
[2017-08-13] MEDS ORDERED: FERROUS GLUCON324 MG PO (16:53)
[2017-08-13] MEDS ORDERED: ARNUITY ELLIP100 MCG INH (16:53)
[2017-08-13] MEDS ORDERED: COUMADIN7.5 MG PO (16:54)
== END 2017-03-12 17:49 | disposition home or self-care (01) ==
LOC: CED 15:59
PROVIDERS: Emergency Medicine
DX: J44.9 Chronic obstructive pulmonary disease, unspecified (principal); F17.200 Nicotine dependence, unspecified, uncomplicated
CPT/HCPCS: 36415; 71010; 80048; 80076; 82553; 84484; 85025; 85610; 85730; 93005; 94640; 96374; 99284; J2930

== ENCOUNTER 2017-04-06 00:26 | Emergency (ER) | payer MEDICARE ==
--- NOTE | ~2017-04-06 | EKG ---
PATIENT: GARY IRENE UNIT #: [id number] Ventricular Rate: 86 BPM Atrial Rate: 86 BPM P-R Interval: 116 ms QRS Duration: 124 ms Q-T Interval: 390 ms QTC Calculation(Bezet): 466 ms P [place]: 72 degrees Calculated R [place]: 96 degrees Calculated T [place]: 65 degrees Diagnosis Line: Normal sinus rhythm Diagnosis Line: Right bundle branch block with repolarization Diagnosis Line: abnormality Diagnosis Line: Abnormal ECG Diagnosis Line: When compared with ECG of 12-MAR-2017 15:14, Diagnosis Line: No significant change was found Diagnosis Line: Confirmed by DELVIS MASON MD ([id number]) on 04/07/2017 Diagnosis Line: 10:34:33 AM INTERPRETING MD: ISABELLA FONSECA
--- NOTE | ~2017-04-06 | CR72 ---
[facility] A Service of [facility] & [facility] RADIOLOGY TEXT RESULTS PATIENT: GARY IRENE LOCATION: [facility] : 58 UNIT #: [id number] AGE: [address]: Ryan Hou MD SEX: M ORDER DR: [id number] [facility] [address] [place], [place] [address] [id number] E MR#: [id number] Acc #: [id number] NAME: GARY IRENE : 1960 SEX: M STUDY DATE/TIME: 04/06/2017 02:12 UNIT: [facility] ROOM: STUDY DESCRIPTION: CR Chest Single View Portable Attending Physician: Ryan Hou M.D. Ordering Physician: Ryan Hou M.D. Primary Care Physician: Primary Care Physician No MEDICAL IMAGING REPORT This report is preliminary unless electronic signature is present EXAM Portable chest, 04/06/2017 at 02:12 INDICATION Shortness of air for 1 day. History of asthma, hypertension and COPD. FINDINGS AP portable chest compared with 03/12/2017. Cardiac and mediastinal contours remain normal. There is emphysema, and there are scattered granulomatous calcifications. No pneumothorax is seen. Old right-side rib fractures again identified. IMPRESSION Emphysema. Old granulomatous disease. No acute findings in the chest. Dictated by... Coleman Crawford Jr., M.D. THIS IS AN ELECTRONICALLY VERIFIED REPORT Coleman Crawford Jr., M.D. at 04/06/2017 5:56 AM ROSSY/nesha TD: 04/06/2017 04:23 JOB #: [id number] MEDICAL IMAGING REPORT Page 1 of 1 COPY
[2017-04-06 01:38] LABS: POC - CKMB 2.2 ng/mL (0.0-7.9); POC - TROPONIN <0.05 ng/mL (<=0.05)
[2017-04-06 01:51] LABS: BASOPHIL# 0.2 X10e3 (0-0.3); BASOPHIL% 1.8 % (0-2.5); EOSINOPHIL# 0.5 X10e3 (0-0.7); EOSINOPHIL% 5.5 % (0.0-7.0); HEMATOCRIT 32.5 % (38.0-50.0); HEMOGLOBIN 9.5 gm/dL (13.0-16.0); LYMPHOCYTE# 1.7 X10e3 (1.0-3.5); LYMPHOCYTE% 18.7 % (17.0-45.0); MEAN CELL VOLUME 64.6 FL (83-96); MEAN CORPUSCULAR HEMOGLOBIN 18.9 PG (28-34); MEAN CORPUSCULAR HGB CONC 29.3 g/dL (30-36); MEAN PLATELET VOLUME 8.5 FL (6.5-11.5); MONOCYTE# 0.6 X10e3 (0-1.0); MONOCYTE% 6.6 % (3.0-12.0); NEUTROPHIL# 6.2 X10e3 (1.5-7.1); NEUTROPHIL% 67.4 % (40-75); PLATELET COUNT 331 X10e3 (140-420); RED BLOOD COUNT 5.04 X10e (3.90-5.60); RED CELL DISTRIBUTION WIDTH 21.2 % (11.0-15.5); WHITE BLOOD COUNT 9.2 X10e3 (4.0-10.5)
[2017-04-06 01:52] LABS: DIFF IND YES
[2017-04-06 02:03] LABS: ALKALINE PHOSPHATASE 86 U/L (32-92); ALT (SGPT) 18 U/L (10-40); AST (SGOT) 19 U/L (10-42); BILIRUBIN, DIRECT <0.1 mg/dL (0.0-0.2); BILIRUBIN,INDIRECT 0.4 mg/dL (0.0-0.9); BILIRUBIN,TOTAL 0.5 mg/dL (0.2-2.0); BLOOD UREA NITROGEN 11 mg/dL (9-23); BUN/CREATININE RATIO 18.33; CALCIUM SERUM 8.5 mg/dL (8.4-10.2); CARBON DIOXIDE 24 mmol/L (22-31); CHLORIDE 106 mmol/L (100-111); CREATININE SERUM 0.6 mg/dL (0.6-1.4); GLOM FILT RATE Estimated 111.7 mL/min (>60); GLUCOSE FASTING 98 mg/dL (70-110); POTASSIUM 4.1 mmol/L (3.5-5.1); PROTEIN TOTAL SERUM 6.9 g/dL (6.0-8.3); SODIUM 137 mmol/L (135-145)
[2017-04-06 02:08] LABS: HYPOCHROMIA MOD; PLATELET ESTIMATE NORMAL (NORMAL); POLYCHROMASIA SL
[2017-04-06 02:09] LABS: SPHEROCYTE SL
[2017-04-06 04:16] LABS: POC - CKMB 1.8 ng/mL (0.0-7.9); POC - TROPONIN <0.05 ng/mL (<=0.05)
[2017-08-13] MEDS ORDERED: PROVENTIL INH0.5 ML INH (16:51)
[2017-08-13] MEDS ORDERED: REQUIP0.25 MG PO (16:51)
[2017-08-13] MEDS ORDERED: METOPROLOL SUCC25 MG PO (16:52)
[2017-08-13] MEDS ORDERED: FERROUS GLUCON324 MG PO (16:53)
[2017-08-13] MEDS ORDERED: ARNUITY ELLIP100 MCG INH (16:53)
[2017-08-13] MEDS ORDERED: COUMADIN7.5 MG PO (16:54)
== END 2017-04-06 05:45 | disposition home or self-care (01) ==
LOC: CED 00:26
PROVIDERS: Emergency Medicine
DX: J44.1 Chronic obstructive pulmonary disease with (acute) exacerbation (principal); J45.909 Unspecified asthma, uncomplicated; F17.200 Nicotine dependence, unspecified, uncomplicated; Z90.49 Acquired absence of other specified parts of digestive tract
CPT/HCPCS: 36415; 71010; 80048; 80076; 82553; 84484; 85025; 93005; 94640; 99284

== ENCOUNTER 2017-05-31 02:32 | Emergency (ER) | payer MEDICARE ==
--- NOTE | ~2017-05-31 | EKG ---
PATIENT: GARY IRENE UNIT #: [id number] Ventricular Rate: 91 BPM Atrial Rate: 91 BPM P-R Interval: 110 ms QRS Duration: 126 ms Q-T Interval: 390 ms QTC Calculation(Bezet): 479 ms P [place]: 73 degrees Calculated R [place]: 95 degrees Calculated T [place]: 66 degrees Diagnosis Line: Sinus rhythm with short GA Diagnosis Line: Right bundle branch block Diagnosis Line: Abnormal ECG Diagnosis Line: When compared with ECG of 31-MAY-2017 03:29, Diagnosis Line: (unconfirmed) Diagnosis Line: No significant change was found Diagnosis Line: Confirmed by TORIE FONSECA, BRITTANIE ([id number]) on Diagnosis Line: 05/31/2017 4:22:08 PM INTERPRETING MD: ALAN
--- NOTE | ~2017-05-31 | CR72 ---
[facility] A Service of [facility] RADIOLOGY TEXT RESULTS PATIENT: GARY IRENE LOCATION: [facility] : 58 UNIT #: [id number] AGE: [address]: CON CASTILLO APRN SEX: M ORDER DR: [id number] [facility] [address] [place], [place] [address] [id number] E MR#: [id number] Acc #: [id number] NAME: GARY IRENE : 1960 SEX: M STUDY DATE/TIME: 05/31/2017 2:59 UNIT: [facility] ROOM: STUDY DESCRIPTION: CR Chest Single View Portable Attending Physician: Con Castillo Aprn Ordering Physician: Ed Doctor [id number] [facility] Primary Care Physician: Primary Care Physician No MEDICAL IMAGING REPORT This report is preliminary unless electronic signature is present EXAM Portable chest INDICATION Shortness of breast and COPD for 1 day. FINDINGS A portable view of the chest was obtained and compared to 04/06/2017. The heart size and vascularity are normal and lungs are clear. There are old healed right rib fractures. IMPRESSION No active disease. No change. Dictated by... Josh Stern M.D. THIS IS AN ELECTRONICALLY VERIFIED REPORT Josh Stern M.D. at 05/31/2017 9:09 PM ROM/dory TD: 05/31/2017 13:55 JOB #: [id number] MEDICAL IMAGING REPORT Page 1 of 1 COPY
[2017-05-31 03:20] LABS: POC - CKMB 1.7 ng/mL (0.0-7.9); POC - TROPONIN <0.05 ng/mL (<=0.05)
[2017-05-31 03:28] LABS: BASOPHIL# 0.2 X10e3 (0-0.3); BASOPHIL% 1.6 % (0-2.5); EOSINOPHIL# 0.5 X10e3 (0-0.7); EOSINOPHIL% 5.3 % (0.0-7.0); HEMATOCRIT 34.6 % (38.0-50.0); HEMOGLOBIN 10.2 gm/dL (13.0-16.0); LYMPHOCYTE# 2.2 X10e3 (1.0-3.5); LYMPHOCYTE% 22.5 % (17.0-45.0); MEAN CELL VOLUME 63.1 FL (83-96); MEAN CORPUSCULAR HEMOGLOBIN 18.6 PG (28-34); MEAN CORPUSCULAR HGB CONC 29.4 g/dL (30-36); MEAN PLATELET VOLUME 7.8 FL (6.5-11.5); MONOCYTE# 0.7 X10e3 (0-1.0); MONOCYTE% 7.3 % (3.0-12.0); NEUTROPHIL# 6.2 X10e3 (1.5-7.1); NEUTROPHIL% 63.3 % (40-75); PLATELET COUNT 429 X10e3 (140-420); RED BLOOD COUNT 5.49 X10e (3.90-5.60); RED CELL DISTRIBUTION WIDTH 21.4 % (11.0-15.5); WHITE BLOOD COUNT 9.8 X10e3 (4.0-10.5)
[2017-05-31 03:29] LABS: DIFF IND YES
[2017-05-31 03:50] LABS: ALBUMIN SERUM 4.2 g/dL (3.5-5.0); BILIRUBIN, DIRECT 0.2 mg/dL (0.0-0.2); BILIRUBIN,INDIRECT 0.5 mg/dL (0.0-0.9); BILIRUBIN,TOTAL 0.7 mg/dL (0.2-2.0); BUN/CREATININE RATIO 18.57; CALCIUM SERUM 8.6 mg/dL (8.4-10.2); CREATININE SERUM 0.7 mg/dL (0.6-1.4); GLOM FILT RATE Estimated 104.8 mL/min (>60); POTASSIUM 3.7 mmol/L (3.5-5.1)
[2017-05-31 03:57] LABS: PLATELET ESTIMATE NORMAL (NORMAL)
[2017-05-31 04:58] LABS: POC - TROPONIN <0.05 ng/mL (<=0.05)
[2017-08-13] MEDS ORDERED: PROVENTIL INH0.5 ML INH (16:51)
[2017-08-13] MEDS ORDERED: REQUIP0.25 MG PO (16:51)
[2017-08-13] MEDS ORDERED: METOPROLOL SUCC25 MG PO (16:52)
[2017-08-13] MEDS ORDERED: FERROUS GLUCON324 MG PO (16:53)
[2017-08-13] MEDS ORDERED: ARNUITY ELLIP100 MCG INH (16:53)
[2017-08-13] MEDS ORDERED: COUMADIN7.5 MG PO (16:54)
== END 2017-05-31 05:30 | disposition home or self-care (01) ==
LOC: CED 02:32
PROVIDERS: Nurse Practitioner Family
DX: J44.1 Chronic obstructive pulmonary disease with (acute) exacerbation (principal); D64.9 Anemia, unspecified; Z88.8 Allergy status to other drugs, medicaments and biological substances; F17.210 Nicotine dependence, cigarettes, uncomplicated
CPT/HCPCS: 36415; 71010; 80048; 80076; 82553; 84484; 85025; 93005; 94640; 96374; 99285; J1885

== ENCOUNTER 2017-06-14 05:35 | Emergency (ER) | payer MEDICARE ==
[~2017-06-14] VITALS: Ht 180.3 cm; Wt 68.0 kg
--- NOTE | ~2017-06-14 | CR72 ---
[facility] A Service of [facility] & [facility] RADIOLOGY TEXT RESULTS PATIENT: GARY IRENE LOCATION: [facility] : 58 UNIT #: [id number] AGE: [address]: Jose Daniel Mcknight MD SEX: M ORDER DR: [id number] [facility] [address]. [place], [place] [address] [id number] E MR#: [id number] Acc #: [id number] NAME: GAYR IRENE : 1960 SEX: M STUDY DATE/TIME: 06/14/2017 6:56 UNIT: [facility] ROOM: STUDY DESCRIPTION: CR Chest Single View Portable Attending Physician: Jose Daniel Mcknight M.D. Ordering Physician: Jose Daniel [id number] Divya Mcknight Primary Care Physician: Primary Care Physician No MEDICAL IMAGING REPORT This report is preliminary unless electronic signature is present EXAM Portable chest radiograph INDICATION Dyspnea since 1 o'clock yesterday. FINDINGS Heart size is within normal limits. There are background emphysematous changes. Patient has old right-sided rib fractures. No pneumothorax or pleural effusion is seen. There are old left-sided rib fractures noted as well. Patchy scarring is noted at the right lung base unchanged since February of 2015. No new infiltrates are seen Dictated by... Maya Man M.D. THIS IS AN ELECTRONICALLY VERIFIED REPORT Maya Man M.D. at 06/14/2017 4:25 PM AFF/rnr TD: 06/14/2017 12:39 JOB #: [id number] MEDICAL IMAGING REPORT Page 1 of 1 COPY
[2017-06-14 07:06] LABS: BASOPHIL# 0.1 X10e3 (0-0.3); BASOPHIL% 0.9 % (0-2.5); EOSINOPHIL# 0.4 X10e3 (0-0.7); EOSINOPHIL% 5.8 % (0.0-7.0); HEMATOCRIT 32.8 % (38.0-50.0); HEMOGLOBIN 9.7 gm/dL (13.0-16.0); LYMPHOCYTE# 1.9 X10e3 (1.0-3.5); LYMPHOCYTE% 24.6 % (17.0-45.0); MEAN CELL VOLUME 63.5 FL (83-96); MEAN CORPUSCULAR HEMOGLOBIN 18.8 PG (28-34); MEAN CORPUSCULAR HGB CONC 29.6 g/dL (30-36); MEAN PLATELET VOLUME 8.6 FL (6.5-11.5); MONOCYTE# 0.5 X10e3 (0-1.0); MONOCYTE% 6.9 % (3.0-12.0); NEUTROPHIL# 4.7 X10e3 (1.5-7.1); NEUTROPHIL% 61.8 % (40-75); PLATELET COUNT 351 X10e3 (140-420); RED BLOOD COUNT 5.16 X10e (3.90-5.60); RED CELL DISTRIBUTION WIDTH 21.7 % (11.0-15.5); WHITE BLOOD COUNT 7.6 X10e3 (4.0-10.5)
[2017-06-14 07:14] LABS: DIFF IND YES
[2017-06-14 07:25] LABS: ALBUMIN SERUM 4.3 g/dL (3.5-5.0); BILIRUBIN, DIRECT 0.1 mg/dL (0.0-0.2); BILIRUBIN,INDIRECT 0.4 mg/dL (0.0-0.9); BILIRUBIN,TOTAL 0.5 mg/dL (0.2-2.0); BUN/CREATININE RATIO 17.5; CALCIUM SERUM 8.8 mg/dL (8.4-10.2); CREATININE SERUM 0.8 mg/dL (0.6-1.4); GLOM FILT RATE Estimated 99.2 mL/min (>60); PROTEIN TOTAL SERUM 7.1 g/dL (6.0-8.3)
[2017-06-14] MEDS ORDERED: NO MEDICATIONS (07:33)
[2017-06-14 08:32] LABS: ACANTHOCYTES PRESENT; ANISOCYTOSIS MOD; BURR CELLS PRESENT; ELLIPTOCYTES PRESENT; HYPOCHROMIA SL; MICROCYTOSIS SL; PLATELET ESTIMATE NORMAL (NORMAL)
[2017-08-13] MEDS ORDERED: REQUIP0.25 MG PO (16:51)
[2017-08-13] MEDS ORDERED: PROVENTIL INH0.5 ML INH (16:51)
[2017-08-13] MEDS ORDERED: METOPROLOL SUCC25 MG PO (16:52)
[2017-08-13] MEDS ORDERED: FERROUS GLUCON324 MG PO (16:53)
[2017-08-13] MEDS ORDERED: ARNUITY ELLIP100 MCG INH (16:53)
[2017-08-13] MEDS ORDERED: COUMADIN7.5 MG PO (16:54)
== END 2017-06-14 09:30 | disposition home or self-care (01) ==
LOC: CED 05:35
PROVIDERS: Emergency Medicine
DX: J44.1 Chronic obstructive pulmonary disease with (acute) exacerbation (principal)
CPT/HCPCS: 36415; 71010; 80048; 80076; 83605; 85025; 87040; 94640; 96374; 96375; 99285; J1885; J2930

== ENCOUNTER 2017-07-27 21:25 | Emergency (ER) | payer MEDICARE ==
[~2017-07-27] VITALS: Ht 180.3 cm; Wt 70.3 kg
--- NOTE | ~2017-07-27 | EKG ---
PATIENT: GARY IRENE UNIT #: [id number] Ventricular Rate: 90 BPM Atrial Rate: 90 BPM P-R Interval: 114 ms QRS Duration: 130 ms Q-T Interval: 396 ms QTC Calculation(Bezet): 484 ms P [place]: 74 degrees Calculated R [place]: 93 degrees Calculated T [place]: 62 degrees Diagnosis Line: Normal sinus rhythm Diagnosis Line: Right bundle branch block Diagnosis Line: Abnormal ECG Diagnosis Line: No previous ECGs available Diagnosis Line: Confirmed by DARIO PARKER MD ([id number]) on Diagnosis Line: 07/29/2017 10:51:44 AM INTERPRETING MD: KEITH FONSECA
--- NOTE | ~2017-07-27 | CR72 ---
[facility] A Service of [facility] & [facility] RADIOLOGY TEXT RESULTS PATIENT: GARY IRENE LOCATION: [facility] : 58 UNIT #: [id number] AGE: [address]: Trevon Perkins MD SEX: M ORDER DR: [id number] [facility] [address] [place], [place] [address] [id number] E MR#: [id number] Acc #: [id number] NAME: GARY IRENE : 1960 SEX: M STUDY DATE/TIME: 07/27/2017 22:28 UNIT: [facility] ROOM: STUDY DESCRIPTION: CR Chest Single View Portable Attending Physician: Trevon Perkins M.D. Ordering Physician: Trevon Perkins M.D. Primary Care Physician: No Primary Care Physician MEDICAL IMAGING REPORT This report is preliminary unless electronic signature is present EXAM Portable chest INDICATION Cough and shortness of air today. PROCEDURE Frontal view of the chest. COMPARISON 06/14/2017 FINDINGS Heart size is normal. There is no dense consolidation, visible pleural fluid or pneumothorax. IMPRESSION No active process. Dictated by... Ata Zavala M.D. THIS IS AN ELECTRONICALLY VERIFIED REPORT Ata Zavala M.D. at 07/28/2017 9:57 PM EED/felipe TD: 07/28/2017 10:56 JOB #: [id number] MEDICAL IMAGING REPORT Page 1 of 1 COPY
[~2017-07-27 21:25] MED LIST changes: +NO MEDICATIONS
[2017-07-27 22:26] LABS: POC - CKMB 2.5 ng/mL (0.0-7.9); POC - TROPONIN <0.05 ng/mL (<=0.05)
[2017-07-27 22:44] LABS: BASOPHIL# 0.1 X10e3 (0-0.3); BASOPHIL% 1.6 % (0-2.5); EOSINOPHIL% 10.6 % (0.0-7.0); HEMATOCRIT 33.9 % (38.0-50.0); HEMOGLOBIN 10.4 gm/dL (13.0-16.0); LYMPHOCYTE# 1.8 X10e3 (1.0-3.5); LYMPHOCYTE% 19.8 % (17.0-45.0); MEAN CELL VOLUME 64.5 FL (83-96); MEAN CORPUSCULAR HEMOGLOBIN 19.7 PG (28-34); MEAN CORPUSCULAR HGB CONC 30.5 g/dL (30-36); MEAN PLATELET VOLUME 8.4 FL (6.5-11.5); MONOCYTE# 0.5 X10e3 (0-1.0); MONOCYTE% 6.1 % (3.0-12.0); NEUTROPHIL# 5.6 X10e3 (1.5-7.1); NEUTROPHIL% 61.9 % (40-75); PLATELET COUNT 334 X10e3 (140-420); RED BLOOD COUNT 5.26 X10e (3.90-5.60); RED CELL DISTRIBUTION WIDTH 19.4 % (11.0-15.5); WHITE BLOOD COUNT 9.1 X10e3 (4.0-10.5)
[2017-07-27 22:46] LABS: DIFF IND YES
[2017-07-27 22:53] LABS: ANISOCYTOSIS MOD; ELLIPTOCYTES PRESENT; HYPOCHROMIA SL; MICROCYTOSIS MOD; PLATELET ESTIMATE NORMAL (NORMAL); STOMATOCYTE PRESENT
[2017-07-27 22:55] LABS: ALBUMIN SERUM 4.5 g/dL (3.5-5.0); BILIRUBIN, DIRECT 0.1 mg/dL (0.0-0.2); BILIRUBIN,TOTAL 0.1 mg/dL (0.2-2.0); CALCIUM SERUM 9.2 mg/dL (8.4-10.2); CREATININE SERUM 0.8 mg/dL (0.6-1.4); GLOM FILT RATE Estimated 99.2 mL/min (>60); POTASSIUM 4.4 mmol/L (3.5-5.1); PROTEIN TOTAL SERUM 7.5 g/dL (6.0-8.3)
[2017-08-13] MEDS ORDERED: REQUIP0.25 MG PO (16:51)
[2017-08-13] MEDS ORDERED: PROVENTIL INH0.5 ML INH (16:51)
[2017-08-13] MEDS ORDERED: METOPROLOL SUCC25 MG PO (16:52)
[2017-08-13] MEDS ORDERED: ARNUITY ELLIP100 MCG INH (16:53)
[2017-08-13] MEDS ORDERED: FERROUS GLUCON324 MG PO (16:53)
[2017-08-13] MEDS ORDERED: COUMADIN7.5 MG PO (16:54)
== END 2017-07-27 23:51 | disposition home or self-care (01) ==
LOC: CED 21:25
PROVIDERS: Emergency Medicine
DX: J44.1 Chronic obstructive pulmonary disease with (acute) exacerbation (principal); I10 Essential (primary) hypertension; F17.200 Nicotine dependence, unspecified, uncomplicated
CPT/HCPCS: 36415; 71010; 80048; 80076; 82553; 84484; 85025; 93005; 94640; 96374; 99285; J2930